=== PATIENT | female | born 1995 | race Caucasian/White ===

== ENCOUNTER 2020-04-15 14:08 | Emergency (ER) | payer MEDICAID, OTHER ==
[~2020-04-15] VITALS: Ht 160 cm; Wt 59.0 kg
[2020-04-15 14:55] VITALS: BP 134/94
[2020-04-15 14:56] LABS: Urine Bacteria NONE SEEN /hpf (None Seen); Urine Blood Negative /uL (Negative); Urine WBC 4 /hpf (0 - 5)
[2020-04-15] MEDS ORDERED: cefTRIAXone SOD 1,000 MG VL IM ONE (15:00)
[2020-04-15] MEDS ORDERED: LIDOCAINE 1% HCL (LOCAL ANESTH.) INJ 20ML MDV ONE (15:05)
== END 2020-04-15 15:31 | disposition home or self-care (01) ==
LOC: ER 14:08
DX: A54.9 Gonococcal infection, unspecified (principal)
CPT/HCPCS: 81001; 81025; 96372; 99283; J0696; J2001